=== PATIENT | female | born 1955 | race Caucasian/White ===

== ENCOUNTER → 2018-09-15 | Day surgery (SDC) | payer OTHER ==
[~2018-09-15] VITALS: Ht 172.7 cm; Wt 86.2 kg
[~2018-09-15] MED LIST: ATOR40TA59 PO; BUPIVACAINE-EPI 0.25%-1:200000 MPF 30 ML VIAL. ONE; DEXAMETHASONE SOD PHOS 4 MG/ML VIAL ONE; EMPA10TA PO; GLYCOPYRROLATE 1 MG/5 ML VIAL. ONE; HYDROmorphone 2 MG/ML VIAL IV PRN; IOHEXOL 300 MG/ML 50 ML VIAL. ONE; IV RINGERS,LACTATED 1000ML 1,000 ML IV SCH; KETOROLAC 30 MG/ML INJ FOR OR. INJ ONE; LIDOCAINE 1% PF 2 ML VIAL. ID PRN; LIDOCAINE 2% PF 5 ML VIAL. ONE; LOSA-73 PO; METF10007 PO; MORPHINE SULFATE 2 MG/ML VIAL. IV PRN; NEOSTIGMINE METHYLSULFATE 5 MG/5 ML SYRINGE. ONE; ONDANSETRON PF 4 MG/2 ML VIAL. IV PRN; ONDANSETRON PF 4 MG/2 ML VIAL. ONE; OXYC1TAB15 PO; PHENYLEPHRINE in 0.9% NACL PF 1 MG/10 ML SYRINGE. IV ONE; PROCHLORPERAZINE 10 MG/2 ML VIAL. IV PRN; PROCHLORPERAZINE 10 MG/2 ML VIAL. ONE; PROPOFOL 20 ML IV ONE; ROCURONIUM 50 MG/5 ML VIAL. ONE; SCOPOLAMINE 1.5MG PATCH. TD ONE; SEVOFLURANE 61 TO 120 MINUTES. IH ONE; SURGICEL HEMOSTAT 4X8 EACH. ONE; fentaNYL PF VIAL 100 MCG/2 ML VIAL IV PRN; fentaNYL PF VIAL 100 MCG/2 ML VIAL ONE; oxyCODONE/APAP 5/325 1 TAB TABLET PO ONE
[2018-09-15 11:49] VITALS: BP 144/83
--- NOTE | 2018-09-15 13:50 | PDOC4 ---
Operative Note Operative Note Date: 09/15/2018 Preoperative diagnosis: Biliary dyskinesia Postoperative diagnosis: Same Procedure: Laparoscopic cholecystectomy Surgeon: Nicholas Specimen: Gallbladder Dictation: Patient is a 63-year-old female who's had right upper quadrant abdominal pain postprandial nausea HIDA scan showed abnormal ejection fraction. Procedure of laparoscopic cholecystectomy was explained to the patient detail risk benefits were also discussed including bleeding infection injury to intra- abdominal contents possibly necessitating further or open operations alternatives to this procedure also discussed with the patient who seemed to understand and gave both verbal and written consent to have the procedure performed. Patient was taken to the operating room placed in supine position general anesthesia was initiated once patient was sleep and intubated her abdomen was prepped and draped in usual sterile fashion using ChloraPrep. An area in the left upper quadrant was injected with quarter percent Marcaine with epinephrine incision was rosina blade scalpel and a 5 mill meter Visiport was placed under direct visualization into the abdomen and a pneumoperitoneum was achieved. Once this was complete a 11 mm port was placed at the umbilicus a 5 mill meter port was placed in the right lateral abdomen and a 5 mm port was placed in the right mid abdomen. The dome of the gallbladder is grasped retracted cephalad the infundibulum of the gallbladder is grasped retracted laterally exposing the triangle adherent tissues of the triangle were taken down with blunt and sharp dissection exposing the cystic duct and cystic artery both were doubly clipped and transected the gallbladder was taken off the liver with hook electrocautery placed in Endo Catch bag and removed from the umbilicus the right upper quadrant was irrigated and suctioned dry hemostasis was deemed to be appropriate and the pneumoperitoneum was reduced all ports removed the fascial defect at the umbilicus closed with [id number] 0 Vicryl suture and the skin was approximate all port sites with 4-0 septic or Monocryl Mastisol Steri-Strips and island dressings were applied. Patient was awakened and extubated in the operating room taken to recovery in stable condition all sponge instrument needle counts listed as correct estimated blood loss 10 mL. MIGEL ERNST MD Sep 15, 2018 13:50
--- NOTE | 2018-09-15 13:53 | DISCH ---
DISCHARGE INSTRUCTIONS Condition on Discharge Condition on Discharge: Stable Activity After Discharge Activity Instructions for Disc: Avoid exertion Other activity instructions: no lifting more than 20 pounds for 2 weeks Diet after Discharge Diet after Discharge: Low Fat Wound Incision Care Other wound/incision instructi: May shower in 24 hours Contacting the after DC Call your doctor for: If your condition worsens Follow-Up Follow up with: Dr. Ernst in 2 weeks MIGEL ERNST MD Sep 15, 2018 13:53
--- NOTE | 2018-09-17 14:41 | PATHOLOGY ---
[facility] Accession Number: [id number] . 01 Material submitted: . gallbladder - GALLBLADDER . 01 Clinical history: . Biliary dyskinesia . 02 Diagnosis: Gallbladder, laparoscopic cholecystectomy: - Chronic cholecystitis, mild. . (JP:mm; 09/17/2018) [facility]/09/17/2018 . 02 Comment: There are no calculi identified within the gallbladder lumen or specimen container. Sections of the gallbladder show focal mild chronic inflammation. There is no evidence of malignancy. . (JPM:mml; 09/17/2018) . 02 Electronically signed: . Gray Suazo MD, Pathologist NPI- [id number] . 01 Gross description: . The specimen is received in formalin, labeled "Mcmahon, Janet, gallbladder", is an intact gallbladder measuring 8.2 cm in length and 2.7 cm in maximum diameter with a glistening, butterfield-purple serosa. The cystic duct is patent. The gallbladder lumen contains green, viscous bile and no discrete calculi. The mucosa is tian-brown and granular. The wall is 0.1 cm in average thickness. Head Bucker tissue is submitted in A1. ([facility]; 09/15/2018) [facility] . 02 Pathologist provided ICD-10: K81.1 . 02 CPT . 781714 Specimen Comment: A courtesy copy of this report has been sent to Specimen Comment: [phone]. Specimen Comment: Report sent to Performed at: [facility] [address] [facility] [address], [place] [id number] MD Don Galdamez MD Phone: [phone] Performed at: 02 [facility] [address] [place], [place] [id number] MD Gray Suazo MD Phone: [phone]
== END | disposition home or self-care (01) ==
LOC: SURG 11:35
PROVIDERS: ATTEND Surgery
DX: K81.1 Chronic cholecystitis (principal); I10 Essential (primary) hypertension; E78.5 Hyperlipidemia, unspecified; M81.0 Age-related osteoporosis without current pathological fracture; E66.9 Obesity, unspecified; Z68.28 Body mass index [BMI] 28.0-28.9, adult; Z90.710 Acquired absence of both cervix and uterus; Z98.890 Other specified postprocedural states; Z83.3 Family history of diabetes mellitus; Z88.6 Allergy status to analgesic agent; Z79.899 Other long term (current) drug therapy; Z79.84 Long term (current) use of oral hypoglycemic drugs
CPT/HCPCS: 47562; 82962; 88304; A7015; J0780; J1100; J1885; J2001; J2370; J2405; J2704; J2710; J3010; J3490; J7030; Q9967

== ENCOUNTER → 2020-04-10 | Outpatient (CLI) | payer OTHER ==
[2018-09-15 11:49] VITALS: BP 144/83
[~2020-04-10] MED LIST changes: +ATOR20TA58 PO; -BUPIVACAINE-EPI 0.25%-1:200000 MPF 30 ML VIAL. ONE; -DEXAMETHASONE SOD PHOS 4 MG/ML VIAL ONE; +EMPA25TA PO; -GLYCOPYRROLATE 1 MG/5 ML VIAL. ONE; -HYDROmorphone 2 MG/ML VIAL IV PRN; -IOHEXOL 300 MG/ML 50 ML VIAL. ONE; -IV RINGERS,LACTATED 1000ML 1,000 ML IV SCH; -KETOROLAC 30 MG/ML INJ FOR OR. INJ ONE; -LIDOCAINE 1% PF 2 ML VIAL. ID PRN; -LIDOCAINE 2% PF 5 ML VIAL. ONE; +LOSA25TA PO; +METF500T16 PO; -MORPHINE SULFATE 2 MG/ML VIAL. IV PRN; -NEOSTIGMINE METHYLSULFATE 5 MG/5 ML SYRINGE. ONE; -ONDANSETRON PF 4 MG/2 ML VIAL. IV PRN; -ONDANSETRON PF 4 MG/2 ML VIAL. ONE; -PHENYLEPHRINE in 0.9% NACL PF 1 MG/10 ML SYRINGE. IV ONE; -PROCHLORPERAZINE 10 MG/2 ML VIAL. IV PRN; -PROCHLORPERAZINE 10 MG/2 ML VIAL. ONE; -PROPOFOL 20 ML IV ONE; -ROCURONIUM 50 MG/5 ML VIAL. ONE; -SCOPOLAMINE 1.5MG PATCH. TD ONE; -SEVOFLURANE 61 TO 120 MINUTES. IH ONE; -SURGICEL HEMOSTAT 4X8 EACH. ONE; -fentaNYL PF VIAL 100 MCG/2 ML VIAL IV PRN; -fentaNYL PF VIAL 100 MCG/2 ML VIAL ONE; -oxyCODONE/APAP 5/325 1 TAB TABLET PO ONE
--- NOTE | 2020-04-10 15:19 | PDOC1 ---
INITIAL PAIN CONSULT DATE OF SERVICE: DOS: DATE: 04/10/20 TIME: 15:09 CHIEF COMPLAINT: Chief Complaint: Right lower quadrant abdominal pain HISTORY OF PRESENT ILLNESS: 65-year-old female presents history of pain right lower quadrant for about 4 months now status post laparoscopic cholecystectomy 1-1/2 years ago. Patient reports the pain did not come up quickly but she has had a expansion of the right mid and lower quadrant on the right side for several months and pain for about the past 4 months. Patient reports no injury or accident has been through an extensive work-up with gastroenterology with CT scans as well as endoscopy and MRI scan of the abdominal wall without any hernias or other abnormal findings. Patient has chronic pain there now which is very sensitive to the touch worse after activity or eating but has normal bowel habits pain traveling from the abdomen to the right flank in the inferior aspect of the right lower quadrant and mid anterior abdominal wall near the umbilicus some pain is now beginning to radiate into the rib margin on the right and a mid axillary distribution as well. Patient reports no recent injury to the area or other inciting event that she is aware of. Patient scribes pain is constant sharp stabbing throbbing shooting burning and intermittent in intensity patient reports it generally does not awaken her from sleep at night but can once or twice at times patient reports she has had extensive work-up once again no specific therapies or treatment for the abdominal wall pain. Patient is somewhat frustrated as to the lack of explanation why the abdominal wall pain is persistent. PAST MEDICAL HISTORY: PMH: Diabetes, hypertension, hyperlipidemia, frequent UTIs PREVIOUS SURGERIES: Past Surgical Hx: Left inguinal hernia repair, hysterectomy, tubal ligation, cholecystectomy August 2018 CURRENT MEDICATIONS: Current Meds: Active Scripts Medications Dose Route/Sig Max Daily Dose Days Date Category Percocet 5-325 Mg Tablet (Oxycodone/Acetaminophen) 1 Each Tablet 1-2 Tab PO PRN Q4HRS PRN 09/15/18 Reported Atorvastatin Calcium 40 Mg Tablet 40 Mg PO DAILY 09/14/18 Reported Losartan Potassium 50 Mg Tablet 50 Mg PO DAILY 09/14/18 Reported Jardiance (Empagliflozin) 10 Mg Tablet 10 Mg PO DAILY 09/14/18 Reported Metformin Hcl 1,000 Mg Tablet 1,000 Mg PO BIDWMEALS 09/14/18 Reported ALLERGIES; Allergies: Coded Allergies: tramadol (Verified Adverse Reaction, Mild, Nausea and Vomiting, 4/30/19) FAMILY HISTORY: Family Hx: Heart disease in patient's mother and cancers in patient's father SOCIAL HISTORY: Social Hx: Patient is under alcohol does not smoke not use any illegal illicit recreational drugs is lives with her spouse lives locally in [facility] REVIEW OF SYSTEMS: ROS: Positive for those items mentioned in history of present illness, all systems are reviewed, otherwise negative, is complete full and well-documented on patient's chart PHYSICAL EXAM: VS: Blood pressure is 132/86 pulse 90 respirations 16 temperature 98.5 F height is 5 foot 7 inches weight is 188 pounds PE: PHYSICAL EXAMINATION: GENERAL: The patient is awake, alert, oriented, appropriate, very pleasant demeanor HEENT: Shows normocephalic, atraumatic. Extraocular movements are intact and symmetrical. Oral cavity: Mucous membranes moist and pink. Dentition is intact. NECK: Shows anterior throat supple without palpable lymphadenopathy noted. Swallow reflex symmetrical. CHEST: Shows normal on inspection. Breath sounds are clear bilaterally, no rales rhonchi wheezes auscultated. HEART: Shows S1, S2 clear. No murmurs auscultated. ABDOMEN: Soft, nontender, nondistended, obese. No palpable organomegaly is noted. No rebound or guarding demonstrated. Patient shows no specific guarding or rebound but is very tender in the right lower quadrant roughly a T9-11 distribution but not complete as pain is more prominent in the right lower quadrant laterally and then medially but not in between the 2 areas in a third area above which has well-healed trocar incision sites from previous laparoscopy. Patient does have in the right mid to lower quadrant area of asymmetry compared to the left with some mild swollen appearance and is moderately tender with light and deep palpation. Patient also has an area of allodynia near the umbilicus just to the right and inferior as well. BACK: Shows spine grossly in the midline. Normal-appearing cervical lordotic curvature. There is slightly increased thoracic kyphosis, some minor flattening of the lumbar lordotic curvature. EXTREMITIES: Lower extremities show symetrical and equal in color and appearance both upper and lower extremities. SKIN: Shows warm and dry, good turgor. No edema. No sores, rashes or bruising throughout. IMPRESSION: Impression: 65-year-old female with 4-month history right lower quadrant abdominal pain History of laparoscopic cholecystectomy with pain near the trocar incision sites consistent with possible neuroma formation post operatively Type 2 diabetes Hypertension Plan: Options discussed with the patient including conservative medical management physical therapies interventional techniques and she like to pursue interventional techniques. We discussed a transverses abdominis plane block for the right lower quadrant. Patient is interested in pursuing this would like to wait for preauthorization with her insurance provider. Once this is obtained we will have patient return and plan on TAP block at that time. ED COURTNEY MD Apr 10, 2020 15:18
== END | disposition home or self-care (01) ==
LOC: PNCL 12:37
PROVIDERS: ATTEND Anesthesiology
DX: R10.31 Right lower quadrant pain (principal); I10 Essential (primary) hypertension; E11.9 Type 2 diabetes mellitus without complications; E78.5 Hyperlipidemia, unspecified; Z87.440 Personal history of urinary (tract) infections; Z79.899 Other long term (current) drug therapy; Z98.890 Other specified postprocedural states; Z90.49 Acquired absence of other specified parts of digestive tract; Z90.710 Acquired absence of both cervix and uterus; Z79.84 Long term (current) use of oral hypoglycemic drugs; Z88.8 Allergy status to other drugs, medicaments and biological substances
CPT/HCPCS: G0463

== ENCOUNTER → 2020-04-24 | Outpatient (CLI) | payer OTHER ==
[2018-09-15 11:49] VITALS: BP 144/83
[~2020-04-24] MED LIST changes: +BUPIVACAINE MPF 0.25% 10 ML VIAL. ONE; +methylPREDNISolone ACETATE 40 MG/ML VIAL. ONE
--- NOTE | 2020-04-24 14:44 | PDOC ---
Progress Note - Pain Clinic Date of Service: DOS: DATE: 04/24/20 TIME: 14:39 Diagnosis: Dx: Abdominal wall pain right lower quadrant Chronic postoperative pain status post cholecystectomy History or Present Illness: HPI: 65-year-old female returns follow-up status post evaluation and preauthorization for abdominal wall peripheral nerve transversus abdominis block. Patient is obtained the authorization and would like to proceed. Patient ports still significant pain right lower quad as well as the right upper quadrant to some extent with radiating pain into the lower quadrant and mostly in the lower aspect radiating medially to the umbilicus. Patient reports no significant changes since previous visit reports her pain is 8 on scale 10 is worse over the past week 8 on average 8 its least is an 8 today. Patient scribes pain is tingling stabbing aching sharp shooting across the lower abdominal wall and into the umbilicus but not crossing the midline. Patient reports no new motor or sensory deficits no new findings. Physical Exam: VS: Blood pressure is 137/88 pulse is 91 respirations 16 temperature 90.4 F weight is 188 pounds PE: PHYSICAL EXAMINATION: GENERAL: The patient is awake, alert, oriented, appropriate, very pleasant demeanor HEENT: Shows normocephalic, atraumatic. Extraocular movements are intact and symmetrical. NECK: Shows anterior throat supple without palpable lymphadenopathy noted. Swallow reflex symmetrical. CHEST: Shows normal on inspection. Breath sounds are clear bilaterally. HEART: Shows S1, S2 clear. No murmurs auscultated. ABDOMEN: Soft, nontender, nondistended, obese. No palpable organomegaly is noted. No rebound or guarding demonstrated. Palpation shows significant tenderness right upper quadrant near the previous incision sites for trochars from previous cholecystectomy also near the umbilicus and just lateral to this and inferior to this with radiating pain with palpation over the lower quadrant abdomen to the back as well slightly past mid axillary line. No discoloration, scars are well-healed SKIN: Shows warm and dry, good turgor. No edema. No sores, rashes or bruising throughout. Procedure: Procedure: Options were discussed with the patient. Patient chart was reviewed as her current medication regimen updated current review of systems updated today as well. We will proceed with transversus abdominis block right lower quadrant and right upper quadrant. Risks were discussed including not limited to bleeding infection possibility of spread of local anesthetic and numbness side effects of steroid medication as well as poor results regarding pain control. Patient understands wished to proceed. Patient return to clinic in approximately 2 weeks for follow-up with counselors return appointment activity level and side effects to be aware of. Medication Injected: Med Injected: Under sterile prep and drape patient's abdominal wall was prepped and right transversus abdominis block performed using 25-gauge 1-1/2 inch needle total of 8 cc 0.25% bupivacaine and 40 mg Depo-Medrol, after negative aspiration at each injection site. Patient tolerated procedure well and had no complications. Condition at Discharge: Condition at Discharge: Condition at discharge stable, patient tolerated procedure well and had no complications. ED COURTNEY MD Apr 24, 2020 14:44
== END | disposition home or self-care (01) ==
LOC: PNCL 13:55
PROVIDERS: ATTEND Anesthesiology
DX: R10.31 Right lower quadrant pain (principal); G89.28 Other chronic postprocedural pain; I10 Essential (primary) hypertension; E78.00 Pure hypercholesterolemia, unspecified; E11.9 Type 2 diabetes mellitus without complications; Z90.710 Acquired absence of both cervix and uterus; Z98.890 Other specified postprocedural states; Z90.49 Acquired absence of other specified parts of digestive tract; Z98.51 Tubal ligation status; Z79.899 Other long term (current) drug therapy; Z88.8 Allergy status to other drugs, medicaments and biological substances
CPT/HCPCS: 64486; J1030; J3490; 64450

== ENCOUNTER → 2020-05-18 | Outpatient (CLI) | payer OTHER ==
[2018-09-15 11:49] VITALS: BP 144/83
--- NOTE | 2020-05-18 09:58 | PDOC ---
Progress Note - Pain Clinic Date of Service: DOS: DATE: 05/18/20 TIME: 09:53 Diagnosis: Dx: Abdominal wall pain right upper quadrant and lower quadrants Chronic postoperative pain status post cholecystectomy History or Present Illness: HPI: 65-year-old female returns follow-up status post transversus abdominis plexus block x1. Patient ports about 50 to 60% improvement initially even higher but t he pain is returning now to some extent in the abdominal wall mostly in the right upper quadrant but also in the lower quadrant and near the umbilicus on the right side as well. Patient reports she is doing much better with increased activity doing greater distance walking doing household activities and is concerned about returning to work next week because the pain is still present although it is significantly improved. Patient reports no new motor or sensory deficits no new changes patient rates her pain as a 7 on scale 10 at all times worst average and least over the past week described as aching and shooting stabbing radiating at times across the abdominal wall and in the low right quadrant and right upper quadrant of the abdominal wall. Patient reports occasional rating into the right flank mostly just in the abdominal region. Patient reports no new motor or sensory deficits or other complaints Physical Exam: VS: Blood pressure 125/75 pulse 86 respirations 18 temperature 98.6 3 Fahrenheit height is 5 foot 7 inches weight is 186 pounds PE: PHYSICAL EXAMINATION: GENERAL: The patient is awake, alert, oriented, appropriate, very pleasant demeanor HEENT: Shows normocephalic, atraumatic. Extraocular movements are intact and symmetrical. NECK: Shows anterior throat supple without palpable lymphadenopathy noted. Swallow reflex symmetrical. CHEST: Shows normal on inspection. Breath sounds are clear bilaterally no rales or rhonchi. HEART: Shows S1, S2 clear. No murmurs auscultated. ABDOMEN: Soft, nontender, nondistended, obese. With moderate palpation shows significant tenderness in the right upper quadrant as well as the lower quadrant anteriorly and in the periumbilicus just right of the umbilicus with moderate tenderness with palpation as well. No radiation is demonstrated with palpation no palpable organomegaly is noted. No rebound but mild guarding with pressure demonstrated. SKIN: Shows warm and dry, good turgor. No edema. No sores, rashes or bruising throughout. Procedure: Procedure: Options discussed with the patient. Patient chart was reviewed as her current medication regimen updated current review of systems updated today as well. We will proceed with transversus abdominis plexus block on the right. Risks were discussed including but not limited to bleeding infection possibility of intravascular injection and sequelae, spread of local anesthetic, numbness, side effects steroid medication, and poor results regarding pain control. Patient understands wishes to proceed. Medication Injected: Med Injected: Under sterile prep and drape patient's abdominal wall was prepared and using a 25-gauge needle transversus abdominis plexus block was performed in the right lower quadrant and right upper quadrant after negative aspiration. Total of 8 cc 0.25 to bupivacaine and 40 mg Depo-Medrol was injected needle was removed sterile bandages were applied. Patient tolerated the procedure well and had no complications. Condition at Discharge: Condition at Discharge: Condition at discharge stable, patient tolerated procedure well and had no complications. ED COURTNEY MD May 18, 2020 09:58
== END | disposition home or self-care (01) ==
LOC: PNCL 09:07
PROVIDERS: ATTEND Anesthesiology
DX: R10.11 Right upper quadrant pain (principal); G89.28 Other chronic postprocedural pain; I10 Essential (primary) hypertension; E78.5 Hyperlipidemia, unspecified; E66.3 Overweight; E11.9 Type 2 diabetes mellitus without complications; E78.00 Pure hypercholesterolemia, unspecified; Z90.49 Acquired absence of other specified parts of digestive tract; Z79.899 Other long term (current) drug therapy; Z68.28 Body mass index [BMI] 28.0-28.9, adult; Z88.8 Allergy status to other drugs, medicaments and biological substances; Z90.710 Acquired absence of both cervix and uterus; Z90.79 Acquired absence of other genital organ(s); Z79.84 Long term (current) use of oral hypoglycemic drugs
CPT/HCPCS: 64450; J1030; J3490

== ENCOUNTER → 2020-09-20 | Outpatient (CLI) | payer OTHER, MEDICARE ==
[2018-09-15 11:49] VITALS: BP 144/83
--- NOTE | 2020-09-20 10:03 | PDOC ---
Progress Note - Pain Clinic Date of Service: DOS: DATE: 09/20/20 TIME: 09:59 Diagnosis: Dx: Abdominal wall pain right upper and lower quadrants Postoperative pain chronic status post cholecystectomy History or Present Illness: HPI: 65 old female returns for follow-up status post peripheral abdominal wall block May 18, 2020. Patient reports that 99% improvement until about 3 to 4 weeks ago. Patient reports pain is been returning in the right lower and upper quadrant mostly lower quadrant near the umbilicus and inferior to this also is just superior to this and laterally with some pain that actually radiates to the back as well as on the flank on the right side patient reports at 6 initially she was doing much better with distance walking doing household activities work activities travel with greater ease and comfort sleeping better at night now the pain is beginning to return with all these activities and getting awake from sleep about every 4 hours or so. Patient rates pain is a 10 on scale 10 is worse over the past week 10 on average 10 at its least is a 10 today. Pain scribes aching sharp dull tight shooting burning cramping stabbing in the right lower quadrant also in the right flank that can be constant with activity. Patient reports no loss of motor function no new bowel or bladder incontinence or other complaints. Physical Exam: VS: Blood pressure is 140/94 pulse 87 respirations 18 temp 97 F height is 5 feet 7 inches weight 186 pounds PE: PHYSICAL EXAMINATION: GENERAL: The patient is awake, alert, oriented, appropriate, very pleasant demeanor HEENT: Shows normocephalic, atraumatic. Extraocular movements are intact and symmetrical. Oral cavity: Mucous membranes moist and pink. Dentition is intact. NECK: Shows anterior throat supple without palpable lymphadenopathy noted. Swallow reflex symmetrical. CHEST: Shows normal on inspection. Breath sounds are clear bilaterally, no rales or rhonchi. HEART: Shows S1, S2 clear. No murmurs auscultated. ABDOMEN: Soft, obese. No palpable organomegaly is noted. No rebound or guarding demonstrated. Patient's abdominal wall shows well-healed surgical scars from previous cholecystectomy with significant tenderness over the middle and upper aspect of the right upper quadrant as well as medially towards the umbilicus and the right lower quadrant inferior to the umbilicus and lateral as well. No radiation of pain is demonstrated throughout. Left side is nontender with palpatio EXTREMITIES: Lower extremities show deep tendon reflexes 2+ in the patellar and tendo calcaneus tendons. Motor exam is 5 on a scale of 5 with right dorsiflexion, extension, quadriceps and hamstring flexion and 5/5 on the left. SKIN: Shows warm and dry, good turgor. No edema. No sores, rashes or bruising throughout. Procedure: Procedure: Options were discussed with the patient. Patient chart reviews her current medication regimen updated current review of systems updated today as well. We will proceed with right-sided upper quadrant and lower quadrant abdominal peripheral nerve blocks. Risk were discussed including but not limited to ble eding infection possibility of intravascular injection sequelae spread local anesthetic and numbness side effects steroid medication and portals rating pain control. Patient understands wished to proceed. Patient return to clinic in approximately 4 weeks for follow-up or as necessary. Medication Injected: Med Injected: Under sterile prep and drape patient's abdominal wall was prepared and using a 25-gauge needle, abdominal wall peripheral nerve block was performed in the r ight lower quadrant and right upper quadrant after negative aspiration. Total of 8 cc 0.25 to bupivacaine and 40 mg Depo-Medrol was injected needle was removed sterile bandages were applied. Patient tolerated the procedure well and had no complications. Condition at Discharge: Condition at Discharge: Condition at discharge stable, patient already procedure well and had no complications. ED COURTNEY MD September 20, 2020 10:03
--- NOTE | 2020-09-20 10:04 | PDOC4 ---
PROCEDURE Procedure Patient was consented for abdominal wall peripheral nerve block. Risk were discussed including but not limited to bleeding infection possibility of spread of local anesthetic and numbness intravascular injection as well as poor results regarding pain control and side effects of steroid medication. Patient understands wished to proceed. Under sterile prep and drape patient's abdominal wall was prepared and using a 25-gauge needle, abdominal wall peripheral nerve block was performed in the right lower quadrant and right upper quadrant after negative aspiration. Total of 8 cc 0.25 to bupivacaine and 40 mg Depo-Medrol was injected needle was removed sterile bandages were applied. Patient tolerated the procedure well and had no complications. ED COURTNEY MD September 20, 2020 10:03
== END | disposition home or self-care (01) ==
LOC: PNCL 09:03
PROVIDERS: ATTEND Anesthesiology
DX: R10.11 Right upper quadrant pain (principal); R10.31 Right lower quadrant pain; I10 Essential (primary) hypertension; E78.00 Pure hypercholesterolemia, unspecified; E11.9 Type 2 diabetes mellitus without complications; Z90.710 Acquired absence of both cervix and uterus; Z98.51 Tubal ligation status; Z98.890 Other specified postprocedural states; Z79.899 Other long term (current) drug therapy; Z79.84 Long term (current) use of oral hypoglycemic drugs; Z88.8 Allergy status to other drugs, medicaments and biological substances
CPT/HCPCS: 64450; J1030; J3490